=== PATIENT | female | born 1970 | race Caucasian/White ===

== ENCOUNTER 2020-11-07 13:45 | Inpatient (IN) | payer MEDICARE, OTHER ==
[~2020-11-07] VITALS: Ht 167.6 cm; Wt 106.6 kg
[2020-11-07 15:31] LABS: HEMOGLOBIN 11.7 gm/dl (12.3-15.3); WHITE BLOOD COUNT 9.3 K/UL (4.5-11.0)
[2020-11-07 16:17] LABS: BUN/CREATININE RATIO 13 (0-10)
[2020-11-07] MEDS ORDERED: PROTONIX40 MG PO (23:36)
[2020-11-07] MEDS ORDERED: BUSPIRONE HCL10 MG PO (23:37)
[2020-11-07] MEDS ORDERED: EFFEXOR XR 150150 MG PO (23:38)
[2020-11-08 03:13] LABS: HEMOGLOBIN 10.5 gm/dl (12.3-15.3); RED BLOOD COUNT 3.7 M/UL (4.00-5.10); WHITE BLOOD COUNT 5.5 K/UL (4.5-11.0)
[2020-11-08 03:51] LABS: BUN/CREATININE RATIO 13 (0-10)
[2020-11-08] MEDS ORDERED: PROAIR HFA8.5 GM INH (18:44)
[2020-11-08] MEDS ORDERED: VITAMIN C 500500 MG PO (18:45)
[2020-11-08] MEDS ORDERED: IBUPROFEN800 MG PO (18:46)
[2020-11-08] MEDS ORDERED: VITAMIN D3125 MCG PO (18:46)
[2020-11-08] MEDS ORDERED: VITAMIN B COMP1 EAC1 PO (18:47)
[2020-11-08] MEDS ORDERED: ACETAMINOPHEN500 MG PO (19:04)
[2020-11-08] MEDS ORDERED: AZITHROMYCIN250 MG PO (19:06)
[2020-11-08] MEDS ORDERED: POTASSIUM CHLO10 MEQ PO (19:08)
[2020-11-08] MEDS ORDERED: DEXAMETHASONE4 MG PO (19:19)
[2020-11-08] MEDS ORDERED: ONDANSETRON HCL4 MG PO (19:21)
[2020-11-09 03:13] LABS: HEMOGLOBIN 11.5 gm/dl (12.3-15.3); RED BLOOD COUNT 3.99 M/UL (4.00-5.10); WHITE BLOOD COUNT 6.5 K/UL (4.5-11.0)
[2020-11-09 03:36] LABS: BUN/CREATININE RATIO 20 (0-10)
--- NOTE | 2020-11-10 01:33 | NUR ---
PATIENT HAS LOST 3 ULTRA SOUND GUIDED IVS IN THE LEFT ARM. PATIENT DOES NOT WANT ANYMORE STICKS TO LEFT ARM AND WANTS TO USE THE RIGHT ARM FOR IV PURPOSE ONLY. MADE MD AWARE AND HE GAVE THE ORDER TO STICK RIGHT ARM FOR AN IV. PATIENT AGREES TO IT. SHE STATED HER LUMPECTOMY WAS OVER 10 YEARS AGO AND THERE WAS NO BREAST REMOVAL. PATIENT IS AWARE OF COMPLICATIONS IT POSSIBLY COULD CAUSE.
[2020-11-10 05:33] LABS: HEMOGLOBIN 11.3 gm/dl (12.3-15.3); WHITE BLOOD COUNT 6.6 K/UL (4.5-11.0)
[2020-11-10 06:07] LABS: BUN/CREATININE RATIO 26 (0-10)
[2020-11-12 03:44] LABS: HEMOGLOBIN 13.6 gm/dl (12.3-15.3); RED BLOOD COUNT 4.74 M/UL (4.00-5.10); WHITE BLOOD COUNT 8.8 K/UL (4.5-11.0)
[2020-11-12 03:49] LABS: BUN/CREATININE RATIO 29 (0-10)
[2020-11-13 03:18] LABS: HEMOGLOBIN 14.1 gm/dl (12.3-15.3); RED BLOOD COUNT 4.88 M/UL (4.00-5.10); WHITE BLOOD COUNT 9.2 K/UL (4.5-11.0)
[2020-11-13 03:54] LABS: BUN/CREATININE RATIO 24 (0-10)
--- NOTE | 2020-11-13 11:42 | NUR ---
PT PRONED FOR APROX 10 MINS AND STATED SHE COULD NOT TOLERATE IT
--- NOTE | 2020-11-13 12:41 | NUR ---
PT IS IN PRONE POSITION
[2020-11-14 03:26] LABS: HEMOGLOBIN 14.2 gm/dl (12.3-15.3); RED BLOOD COUNT 5.16 M/UL (4.00-5.10)
[2020-11-14 03:29] LABS: WHITE BLOOD COUNT 13.6 K/UL (4.5-11.0)
[2020-11-14 04:02] LABS: BUN/CREATININE RATIO 26 (0-10)
[2020-11-15 04:00] LABS: HEMOGLOBIN 14.7 gm/dl (12.3-15.3); RED BLOOD COUNT 5.14 M/UL (4.00-5.10)
[2020-11-15 04:06] LABS: WHITE BLOOD COUNT 18.7 K/UL (4.5-11.0)
[2020-11-15 04:26] LABS: BUN/CREATININE RATIO 29 (0-10)
[2020-11-15 15:51] LABS: BUN/CREATININE RATIO 32 (0-10)
[2020-11-16 04:07] LABS: RED BLOOD COUNT 5.22 M/UL (4.00-5.10); WHITE BLOOD COUNT 20.7 K/UL (4.5-11.0)
[2020-11-16 04:18] LABS: BUN/CREATININE RATIO 33 (0-10)
[2020-11-17 10:22] LABS: HEMOGLOBIN 15.3 gm/dl (12.3-15.3); RED BLOOD COUNT 5.26 M/UL (4.00-5.10); WHITE BLOOD COUNT 25.2 K/UL (4.5-11.0)
[2020-11-17 10:48] LABS: BUN/CREATININE RATIO 34 (0-10)
[2020-11-18 02:45] LABS: HEMOGLOBIN 14.3 gm/dl (12.3-15.3); RED BLOOD COUNT 4.97 M/UL (4.00-5.10); WHITE BLOOD COUNT 25.2 K/UL (4.5-11.0)
[2020-11-18 03:10] LABS: BUN/CREATININE RATIO 36 (0-10)
[2020-11-19 02:36] LABS: HEMOGLOBIN 14.7 gm/dl (12.3-15.3); RED BLOOD COUNT 5.06 M/UL (4.00-5.10); WHITE BLOOD COUNT 25.4 K/UL (4.5-11.0)
[2020-11-19 02:51] LABS: BUN/CREATININE RATIO 36 (0-10)
[2020-11-20 03:53] LABS: HEMOGLOBIN 13.9 gm/dl (12.3-15.3); RED BLOOD COUNT 4.97 M/UL (4.00-5.10); WHITE BLOOD COUNT 25.8 K/UL (4.5-11.0)
[2020-11-20 04:09] LABS: BUN/CREATININE RATIO 39 (0-10)
[2020-11-21 03:32] LABS: HEMOGLOBIN 13.6 gm/dl (12.3-15.3); RED BLOOD COUNT 4.68 M/UL (4.00-5.10)
[2020-11-21 03:50] LABS: BUN/CREATININE RATIO 37 (0-10)
--- NOTE | 2020-11-21 14:00 | NUR ---
CALLED DR LARSON REGARDING IV STATUS, UNABLE TO GET ACCESS X SEVERAL ATTEMPTS, ASKED DR LARSON FOR US GUIDED IV OR MIDLINE, REFUSED AND WAS OK WITH PT NOT HAVING ACCESS, ALL MEDS CHANGED TO PO
--- NOTE | 2020-11-21 23:48 | NUR ---
PATIENT COMPLAINING OF SUDDEN LEFT SHOULDER PAIN AND IS IN TEARS. SHE REPORTS THAT IS STARTED TODAY AND HAS PROGESSIVELY GOTTEN WORSE. NOTIFIED DR. LANZA OF FINDINGS AND ORDERS OBTAINED.
--- NOTE | 2020-11-22 09:56 | NUR ---
20G X 10CM MIDLINE PLACED IN THE RIGHT BASILIC VEIN, USING ULTRASOUND. ASPIRATES AND FLUSHES.
[2020-11-23 03:29] LABS: RED BLOOD COUNT 4.51 M/UL (4.00-5.10); WHITE BLOOD COUNT 16.9 K/UL (4.5-11.0)
[2020-11-23 03:53] LABS: BUN/CREATININE RATIO 34 (0-10)
[2020-11-24 03:15] LABS: RED BLOOD COUNT 4.97 M/UL (4.00-5.10)
[2020-11-24 03:20] LABS: BUN/CREATININE RATIO 31 (0-10)
[2020-11-25 05:55] LABS: HEMOGLOBIN 11.1 gm/dl (12.3-15.3); RED BLOOD COUNT 4.05 M/UL (4.00-5.10); WHITE BLOOD COUNT 13.9 K/UL (4.5-11.0)
[2020-11-25 06:07] LABS: BUN/CREATININE RATIO 30 (0-10)
[2020-11-26 05:23] LABS: HEMOGLOBIN 10.3 gm/dl (12.3-15.3); RED BLOOD COUNT 3.73 M/UL (4.00-5.10); WHITE BLOOD COUNT 13.3 K/UL (4.5-11.0)
[2020-11-26 06:01] LABS: BUN/CREATININE RATIO 20 (0-10)
[2020-11-27 05:24] LABS: HEMOGLOBIN 9.9 gm/dl (12.3-15.3); RED BLOOD COUNT 3.53 M/UL (4.00-5.10)
[2020-11-27 05:29] LABS: WHITE BLOOD COUNT 16.8 K/UL (4.5-11.0)
[2020-11-27 06:00] LABS: BUN/CREATININE RATIO 27 (0-10)
[2020-11-28 05:24] LABS: HEMOGLOBIN 8.6 gm/dl (12.3-15.3); WHITE BLOOD COUNT 14.7 K/UL (4.5-11.0)
[2020-11-28 05:26] LABS: RED BLOOD COUNT 3.1 M/UL (4.00-5.10)
[2020-11-28 05:47] LABS: BUN/CREATININE RATIO 35 (0-10)
[2020-11-29 05:48] LABS: HEMOGLOBIN 9.1 gm/dl (12.3-15.3); RED BLOOD COUNT 3.3 M/UL (4.00-5.10); WHITE BLOOD COUNT 13.1 K/UL (4.5-11.0)
[2020-11-29 06:28] LABS: BUN/CREATININE RATIO 43 (0-10)
[2020-11-30 05:56] LABS: HEMOGLOBIN 8.7 gm/dl (12.3-15.3); RED BLOOD COUNT 3.17 M/UL (4.00-5.10); WHITE BLOOD COUNT 10.4 K/UL (4.5-11.0)
[2020-11-30 06:54] LABS: BUN/CREATININE RATIO 45 (0-10)
--- NOTE | 2020-11-30 15:25 | NUR ---
CENTRAL LINE DRESSING CHANGED AND CLEANED.
[2020-12-01 05:12] LABS: HEMOGLOBIN 9.5 gm/dl (12.3-15.3); RED BLOOD COUNT 3.45 M/UL (4.00-5.10); WHITE BLOOD COUNT 11.7 K/UL (4.5-11.0)
[2020-12-01 05:33] LABS: BUN/CREATININE RATIO 49 (0-10)
[2020-12-02 09:51] LABS: RED BLOOD COUNT 3.65 M/UL (4.00-5.10); WHITE BLOOD COUNT 16.1 K/UL (4.5-11.0)
[2020-12-02 10:08] LABS: BUN/CREATININE RATIO 47 (0-10)
[2020-12-03 05:43] LABS: HEMOGLOBIN 10.2 gm/dl (12.3-15.3); RED BLOOD COUNT 3.67 M/UL (4.00-5.10)
[2020-12-03 06:10] LABS: BUN/CREATININE RATIO 37 (0-10)
[2020-12-03 06:12] LABS: WHITE BLOOD COUNT 21.8 K/UL (4.5-11.0)
[2020-12-03 22:21] LABS: ACINETOBACTER BAUMANNII Not Detected (Negative); CANDIDA ALBICANS Not Detected (Negative); CANDIDA KRUSEI Not Detected (Negative); CANDIDA TROPICALIS Not Detected (Negative); ENTEROCOCCUS Not Detected (Negative); ESCHERICHIA COLI Not Detected (Negative); HAEMOPHILUS INFLUENZAE Not Detected (Negative); KLEBSIELLA OXYTOCA Not Detected (Negative); KLEBSIELLA PNEUMONIAE Not Detected (Negative); KPC-CARBAPENEM-RESISTANCE GENE Not Detected (Negative); PROTEUS Not Detected (Negative); PSEUDOMONAS AERUGINOSA Not Detected (Negative); SERRATIA MARCESANS Not Detected (Negative); STAPHYLOCOCCUS AUREUS Not Detected (Negative); STREP AGALACTIAE (GROUP B) Not Detected (Negative); STREP PYOGENES (GROUP A) Not Detected (Negative); STREPTOCOCCUS Not Detected (Negative); vanA/B (VANCOMYCIN RESIST GENE Not Detected (Negative)
[2020-12-03 23:37] LABS: STAPHYLOCOCCUS DETECTED (Negative); mecA (METHICILLIN RESIST GENE DETECTED (Negative)
[2020-12-04 05:37] LABS: HEMOGLOBIN 8.7 gm/dl (12.3-15.3); WHITE BLOOD COUNT 18.2 K/UL (4.5-11.0)
[2020-12-04 05:38] LABS: RED BLOOD COUNT 3.15 M/UL (4.00-5.10)
[2020-12-04 05:54] LABS: BUN/CREATININE RATIO 21 (0-10)
[2020-12-05 06:30] LABS: HEMOGLOBIN 8.4 gm/dl (12.3-15.3); WHITE BLOOD COUNT 15.4 K/UL (4.5-11.0)
[2020-12-05 06:53] LABS: BUN/CREATININE RATIO 14 (0-10)
[2020-12-06 05:49] LABS: HEMOGLOBIN 8.1 gm/dl (12.3-15.3); RED BLOOD COUNT 2.99 M/UL (4.00-5.10); WHITE BLOOD COUNT 16.5 K/UL (4.5-11.0)
[2020-12-06 06:04] LABS: BUN/CREATININE RATIO 14 (0-10)
[2020-12-07 09:46] LABS: HEMOGLOBIN 8.2 gm/dl (12.3-15.3); RED BLOOD COUNT 2.92 M/UL (4.00-5.10); WHITE BLOOD COUNT 18.4 K/UL (4.5-11.0)
[2020-12-07 11:03] LABS: BUN/CREATININE RATIO 16 (0-10)
[2020-12-08 05:04] LABS: HEMOGLOBIN 7.8 gm/dl (12.3-15.3); RED BLOOD COUNT 2.84 M/UL (4.00-5.10); WHITE BLOOD COUNT 20.7 K/UL (4.5-11.0)
[2020-12-08 05:37] LABS: BUN/CREATININE RATIO 15 (0-10)
[2020-12-09 08:45] LABS: HEMOGLOBIN 7.6 gm/dl (12.3-15.3); RED BLOOD COUNT 2.71 M/UL (4.00-5.10); WHITE BLOOD COUNT 20.4 K/UL (4.5-11.0)
[2020-12-09 09:06] LABS: BUN/CREATININE RATIO 24 (0-10)
[2020-12-10 05:37] LABS: HEMOGLOBIN 7.5 gm/dl (12.3-15.3); RED BLOOD COUNT 2.7 M/UL (4.00-5.10); WHITE BLOOD COUNT 19.1 K/UL (4.5-11.0)
[2020-12-10 06:02] LABS: BUN/CREATININE RATIO 38 (0-10)
[2020-12-11 05:59] LABS: HEMOGLOBIN 7.7 gm/dl (12.3-15.3); RED BLOOD COUNT 2.74 M/UL (4.00-5.10); WHITE BLOOD COUNT 18.7 K/UL (4.5-11.0)
[2020-12-11 06:18] LABS: BUN/CREATININE RATIO 47 (0-10)
[2020-12-12 08:20] LABS: HEMOGLOBIN 8.7 gm/dl (12.3-15.3); WHITE BLOOD COUNT 17.5 K/UL (4.5-11.0)
[2020-12-12 08:23] LABS: RED BLOOD COUNT 3.03 M/UL (4.00-5.10)
[2020-12-12 08:44] LABS: BUN/CREATININE RATIO 72 (0-10)
[2020-12-13 05:25] LABS: HEMOGLOBIN 9.1 gm/dl (12.3-15.3); RED BLOOD COUNT 3.17 M/UL (4.00-5.10)
[2020-12-13 05:44] LABS: BUN/CREATININE RATIO 67 (0-10)
[2020-12-15 05:45] LABS: WHITE BLOOD COUNT 21.1 K/UL (4.5-11.0)
[2020-12-15 05:51] LABS: RED BLOOD COUNT 3.5 M/UL (4.00-5.10)
[2020-12-15 06:34] LABS: BUN/CREATININE RATIO 52 (0-10)
[2020-12-16 05:55] LABS: HEMOGLOBIN 9.9 gm/dl (12.3-15.3); RED BLOOD COUNT 3.47 M/UL (4.00-5.10); WHITE BLOOD COUNT 24.3 K/UL (4.5-11.0)
[2020-12-16 06:06] LABS: BUN/CREATININE RATIO 36 (0-10)
[2020-12-17 05:21] LABS: HEMOGLOBIN 9.6 gm/dl (12.3-15.3); RED BLOOD COUNT 3.39 M/UL (4.00-5.10); WHITE BLOOD COUNT 19.7 K/UL (4.5-11.0)
[2020-12-17 05:50] LABS: BUN/CREATININE RATIO 52 (0-10)
[2020-12-18 05:11] LABS: HEMOGLOBIN 9.3 gm/dl (12.3-15.3); RED BLOOD COUNT 3.34 M/UL (4.00-5.10); WHITE BLOOD COUNT 16.9 K/UL (4.5-11.0)
[2020-12-18 05:28] LABS: BUN/CREATININE RATIO 55 (0-10)
[2020-12-19 04:59] LABS: HEMOGLOBIN 9.1 gm/dl (12.3-15.3); RED BLOOD COUNT 3.19 M/UL (4.00-5.10); WHITE BLOOD COUNT 17.6 K/UL (4.5-11.0)
[2020-12-19 08:01] LABS: BUN/CREATININE RATIO 43 (0-10)
[2020-12-20 05:38] LABS: HEMOGLOBIN 8.8 gm/dl (12.3-15.3); RED BLOOD COUNT 3.19 M/UL (4.00-5.10); WHITE BLOOD COUNT 17.4 K/UL (4.5-11.0)
[2020-12-20 06:09] LABS: BUN/CREATININE RATIO 30 (0-10)
[2020-12-21 05:04] LABS: HEMOGLOBIN 9.3 gm/dl (12.3-15.3); RED BLOOD COUNT 3.41 M/UL (4.00-5.10)
[2020-12-21 05:18] LABS: BUN/CREATININE RATIO 36 (0-10)
[2020-12-22 04:45] LABS: HEMOGLOBIN 10.1 gm/dl (12.3-15.3); RED BLOOD COUNT 3.62 M/UL (4.00-5.10); WHITE BLOOD COUNT 19.8 K/UL (4.5-11.0)
[2020-12-22 05:06] LABS: BUN/CREATININE RATIO 33 (0-10)
[2020-12-23 10:00] LABS: HEMOGLOBIN 8.9 gm/dl (12.3-15.3); RED BLOOD COUNT 3.32 M/UL (4.00-5.10)
[2020-12-23 10:04] LABS: BUN/CREATININE RATIO 29 (0-10)
[2020-12-24 06:21] LABS: HEMOGLOBIN 8.7 gm/dl (12.3-15.3); RED BLOOD COUNT 3.23 M/UL (4.00-5.10); WHITE BLOOD COUNT 20.7 K/UL (4.5-11.0)
[2020-12-24 07:00] LABS: BUN/CREATININE RATIO 29 (0-10)
[2020-12-25 05:21] LABS: HEMOGLOBIN 8.8 gm/dl (12.3-15.3); RED BLOOD COUNT 3.26 M/UL (4.00-5.10); WHITE BLOOD COUNT 19.8 K/UL (4.5-11.0)
[2020-12-25 05:56] LABS: BUN/CREATININE RATIO 31 (0-10)
[2020-12-25] MEDS ORDERED: HYDROCODON-ACE1 EAC4 GT (11:21)
[2020-12-25] MEDS ORDERED: FENTANYL1 EACH TOP (11:21)
[2020-12-25] MEDS ORDERED: LOPRESSOR 25 MG25 MG PEG (11:21)
[2020-12-25] MEDS ORDERED: ALPRAZOLAM0.5 MG PO (11:21)
[2020-12-25] MEDS ORDERED: ELIQUIS 5 MG TAB5 MG PO (11:21)
== END 2020-12-25 17:30 | DRG 4 ==
LOC: ER1 13:45 → CCU 17:05 → CDU 17:05 → PROG CARE 17:05 → CCU 11-24 10:22
PROVIDERS: Internal Medicine; Internal Medicine Pulmonary Disease; Nurse Practitioner Pediatrics; Physician Assistant Medical; Surgery; ADMIT Internal Medicine Infectious Disease
PROC: XW033E5 Introduction of Remdesivir Anti-infective into Peripheral Vein, Percutaneous Approach, New Technology Group 5 (ICD-10-PCS; 2020-11-07)
PROC: 3E0333Z Introduction of Anti-inflammatory into Peripheral Vein, Percutaneous Approach (ICD-10-PCS; 2020-11-07)
PROC: XW033G5 Introduction of Sarilumab into Peripheral Vein, Percutaneous Approach, New Technology Group 5 (ICD-10-PCS; 2020-11-08)
PROC: 8E0ZXY6 Isolation (ICD-10-PCS; 2020-11-08)
PROC: 0BH17EZ Insertion of Endotracheal Airway into Trachea, Via Natural or Artificial Opening (ICD-10-PCS; 2020-11-21)
PROC: 5A1945Z Respiratory Ventilation, 24-96 Consecutive Hours (ICD-10-PCS; 2020-11-21)
PROC: 0BH17EZ Insertion of Endotracheal Airway into Trachea, Via Natural or Artificial Opening (ICD-10-PCS; 2020-11-24)
PROC: B24BZZ4 Ultrasonography of Heart with Aorta, Transesophageal (ICD-10-PCS; 2020-11-24)
PROC: 5A0955A Assistance with Respiratory Ventilation, Greater than 96 Consecutive Hours, High Flow/Velocity Cannula (ICD-10-PCS; 2020-11-24)
PROC: 02HV33Z Insertion of Infusion Device into Superior Vena Cava, Percutaneous Approach (ICD-10-PCS; 2020-11-25)
PROC: B548ZZA Ultrasonography of Superior Vena Cava, Guidance (ICD-10-PCS; 2020-11-25)
PROC: 3E0G76Z Introduction of Nutritional Substance into Upper GI, Via Natural or Artificial Opening (ICD-10-PCS; principal; 2020-12-15 07:30)
PROC: 0DH63UZ Insertion of Feeding Device into Stomach, Percutaneous Approach (ICD-10-PCS; principal; 2020-12-15 07:30)
PROC: 0B113F4 Bypass Trachea to Cutaneous with Tracheostomy Device, Percutaneous Approach (ICD-10-PCS; principal; 2020-12-15 07:30)
DX: U07.1 COVID-19 (principal); J12.82 Pneumonia due to coronavirus disease 2019; A41.89 Other specified sepsis; J80 Acute respiratory distress syndrome; I26.99 Other pulmonary embolism without acute cor pulmonale; R65.21 Severe sepsis with septic shock; B37.0 Candidal stomatitis; E87.1 Hypo-osmolality and hyponatremia; E87.4 Mixed disorder of acid-base balance; D84.9 Immunodeficiency, unspecified; N39.0 Urinary tract infection, site not specified; B44.9 Aspergillosis, unspecified; E87.6 Hypokalemia; F41.9 Anxiety disorder, unspecified; K37 Unspecified appendicitis; B96.89 Other specified bacterial agents as the cause of diseases classified elsewhere; D72.829 Elevated white blood cell count, unspecified; T38.0X5A Adverse effect of glucocorticoids and synthetic analogues, initial encounter; E66.01 Morbid (severe) obesity due to excess calories; R19.7 Diarrhea, unspecified; I95.9 Hypotension, unspecified; D64.9 Anemia, unspecified; R73.9 Hyperglycemia, unspecified; L89.152 Pressure ulcer of sacral region, stage 2; F32.9 Major depressive disorder, single episode, unspecified; Z85.3 Personal history of malignant neoplasm of breast; Z90.11 Acquired absence of right breast and nipple; Z90.710 Acquired absence of both cervix and uterus; Z90.49 Acquired absence of other specified parts of digestive tract; Z82.49 Family history of ischemic heart disease and other diseases of the circulatory system; Z98.1 Arthrodesis status; Z68.37 Body mass index [BMI] 37.0-37.9, adult; Z23 Encounter for immunization
CPT/HCPCS: ECHO; 31500; 36415; 36600; 71045; 71250; 74018; 76705; 80048; 80053; 80076; 80202; 81001; 82533; 82550; 82553; 82728; 82803; 82962; 83036; 83605; 83615; 83735; 83874; 83880; 83935; 84100; 84132; 84300; 84439; 84443; 84484; 85007; 85025; 85027; 85379; 85384; 85610; 85730; 86140; 87040; 87070; 87077; 87086; 87150; 87186; 87205; 93005; 93306; 93970; 94003; 94640; 94660; 94664; 94760; 96374; 99285; A6212; C1751; C1769; J0330; J0692; J0713; J1100; J1120; J1205; J1650; J1940; J1956; J2020; J2060; J2185; J2248; J2250; J2270; J2405; J2543; J2550; J2704; J2920; J3010; J3370; J3465; J3475; J3480; J7030; J7040; J7050; J7070; J7120; P9047; Q9967; U0002